=== PATIENT | female | born 1945 | race Caucasian/White ===

== ENCOUNTER 2021-02-25 14:56 | Inpatient (IN) | payer MEDICARE, OTHER ==
[~2021-02-25] VITALS: Ht 165.1 cm; Wt 55.8 kg
[2021-02-25 16:00] VITALS: BP 155/87
--- NOTE | 2021-02-25 16:30 | NUR ---
RN NOTES PATIENT TRANSFERRED TO UNIT AT ROOM 304-2 VIA [facility], ACCOMPANIED BY 2 EMT'S.
--- NOTE | 2021-02-25 17:00 | NUR ---
CLOTH BLEACHING SUPERVISOR NOTES ADMITTED THIS 75 Y/O FEMALE PATIENT FROM [facility] ER TRANSPORTED BY AMBULANCE VIA GURNEY, WITH ADMITTING DIAGNOSIS OF PNEUMONIA. PATIENT IS ALERT TO SELF, NON-VERBAL, BUT ABLE TO FOLLOW SIMPLE COMMANDS. ON [place], AIR, SPO2 97%. BREATHING EVEN AND UNLABORED, NO SOB NOTED. TELE MONITOR IN PLACE, SINUS TACH @110S. WITH SL ON LEFT FOREARM, PATENT AND INTACT. BODY ASSESSMENT DONE, NOTED WITH MULTIPLE DISCOLORATIONS ON LEFT FACE, LEFT HAND, LEFT KNEE, RIGHT FOREARM, AND REDNESS ON LEFT ELBOW. ROUTINE ADMISSION CARE PROVIDED. CALL LIGHT PLACED WITHIN EASY REACH, BED ON ITS LOWEST POSITION, BED LOCKED, BED ALARM ON, SIDE RAILS UP FOR SAFETY. ALL NEEDS ATTENDED TO, KEPT CLEAN AND COMFORTABLE. WILL CONTINUE TO MONITOR.SEEN AND EXAMINED BY DR. JOCELYN NESS.
[2021-02-25] MEDS ORDERED: ZOLPIDEM TARTRATE 5 MG TABLET PO PRN (17:30)
[2021-02-25] MEDS ORDERED: ONDANSETRON HCL/PF 4 MG/2 ML VIAL IVP PRN (17:30)
[2021-02-25] MEDS ORDERED: MAGNESIUM HYDROXIDE 30 ML UDC PO PRN (17:30)
[2021-02-25] MEDS ORDERED: Z GUARD REMEDY 2 OZ OINT TP PRN (17:30)
[2021-02-25] MEDS ORDERED: MAG HYDROX/AL HYDROX/SIMETH 30 ML UDC PO PRN (17:30)
[2021-02-25] MEDS ORDERED: CEFTRIAXONE 1 G VIAL IV SCH (17:30)
[2021-02-25] MEDS ORDERED: ACETAMINOPHEN 325 MG TABLET PO PRN ×2 (17:30→19:00)
[2021-02-25] MEDS ORDERED: LOPE-195 PO (17:38)
[2021-02-25] MEDS ORDERED: TRIA80CR12 TP (17:38)
[2021-02-25] MEDS ORDERED: HYDR28.316 RC (17:38)
[2021-02-25] MEDS ORDERED: ZINC1CAP3 PO (17:38)
[2021-02-25] MEDS ORDERED: PSYL3.4P6 PO (17:38)
[2021-02-25] MEDS ORDERED: BISA10SU11 RC (17:38)
[2021-02-25] MEDS ORDERED: SIMV-49 PO (17:38)
[2021-02-25] MEDS ORDERED: ACET-868 PO (17:38)
[2021-02-25] MEDS ORDERED: DIPH25CA51 PO (17:38)
[2021-02-25] MEDS ORDERED: NA P133E RC (17:38)
[2021-02-25] MEDS ORDERED: POLY15DR40 EACHEYE (17:38)
[2021-02-25] MEDS ORDERED: IBUP-1953 PO (17:38)
[2021-02-25] MEDS ORDERED: POLY17PO4 PO (17:38)
[2021-02-25] MEDS ORDERED: FAMO20TA8 PO (17:38)
[2021-02-25] MEDS ORDERED: CALC500T52 PO (17:38)
[2021-02-25] MEDS ORDERED: KETO5DRO39 EACHEYE (17:38)
[2021-02-25] MEDS ORDERED: HYDR-500 PO (17:38)
[2021-02-25] MEDS ORDERED: ONDA4TAB5 PO (17:38)
[2021-02-25] MEDS ORDERED: ASCO-352 PO (17:38)
[2021-02-25] MEDS ORDERED: NEOM28.37 TP (17:38)
[2021-02-25] MEDS ORDERED: SIME80TA15 PO (17:38)
[2021-02-25] MEDS ORDERED: DOCU-141 PO (17:38)
[2021-02-25] MEDS ORDERED: ASPI-1420 PO (17:38)
[2021-02-25] MEDS ORDERED: FERR325T23 PO (17:38)
[2021-02-25] MEDS ORDERED: MAGN400O6 PO (17:38)
[2021-02-25] MEDS ORDERED: METO25TA20 PO (17:38)
[2021-02-25] MEDS ORDERED: MULT-447 PO (17:38)
[2021-02-25] MEDS ORDERED: CLON0.1T PO (17:38)
[2021-02-25] MEDS ORDERED: QUET25TA PO (17:38)
--- NOTE | 2021-02-25 17:57 | NUR ---
RN NOTES SPOKE W/ ENRRIQUE AMADO ([phone]), ADMIN OF ABILITY PATHWAYS [facility], AND INFORMED ABOUT PATIENT'S PREVIOUS HOSPITALIZATION. PER GONZALEZ OSUNA IS THE RN OF [facility] AND CAN BE REACHED AT [phone] FOR INFORMATION.
[2021-02-25] MEDS: CEFTRIAXONE 1 G in IV D5W 50 ML IV SCH (18:34)
[2021-02-25] MEDS: IV NS 0.9% 1,000 ML IV PRN (18:35)
[2021-02-25] MEDS ORDERED: NA PHOS,M-B/NA PHOS,DI-BA 1 EA ENEMA RC PRN (19:00)
[2021-02-25] MEDS ORDERED: BISACODYL SUPP (10 MG) 10 MG/SUPP.RECT SUPP.RECT RC PRN (19:00)
[2021-02-25] MEDS ORDERED: NEOMY SULF/BACITRAC ZN/POLY 15 GM TUBE TP PRN (19:00)
--- NOTE | 2021-02-25 19:40 | NUR ---
QUALITY AUDIT REPRESENTATIVE NOTES RECEIVED PATIENT IN BED WATCHING TELEVISION. NON-VERBAL BUT NODS HEAD A WAY OF COMMUNICATING. NO S/S OF APPARENT DISTRESS. NO C/O PAIN. TELE MONITOR READING ST 114. IV NS RUNNING AT 75 ML/HR. SAFETY IN PLACE. WILL CONTINUE TO MONITOR PATIENT.
[2021-02-25 20:00] VITALS: BP 144/72
[2021-02-25] MEDS: QUETIAPINE FUMARATE 25 MG TABLET PO SCH (22:00)
[2021-02-25] MEDS ORDERED: SIMVASTATIN 40 MG TABLET PO SCH (22:00)
[2021-02-25] MEDS: DOCUSATE SODIUM 100 MG CAPSULE PO SCH (22:00)
--- NOTE | 2021-02-26 04:00 | NUR ---
BIOMEDICAL EQUIPMENT SPECIALIST NOTES MRSA SWAB AND UA COLLECTED AT THIS TIME.
[2021-02-26 05:00] VITALS: BP 163/66
[2021-02-26 06:15] LABS: BASOPHILS % (AUTO) 0.4 % (0.0-2.0); EOSINOPHILS % (AUTO) 1.1 % (0.0-6.0); HEMATOCRIT 41 % (33-45); HEMOGLOBIN 13.9 g/dL (11.5-14.8); LYMPHOCYTES # (AUTO) 0.9 K/uL (0.8-4.8); LYMPHOCYTES % (AUTO) 9.8 % (20.0-44.0); MEAN CORPUSCULAR HGB CONC 34 g/dl (31.0-36.0); MEAN CORPUSCULAR VOLUME 88 fL (82-100); MONOCYTES # (AUTO) 1.1 K/uL (0.1-1.30); MONOCYTES % (AUTO) 11.8 % (2.0-12.0); NEUTROPHILS # (AUTO) 7.1 K/uL (1.8-8.9); NEUTROPHILS % (AUTO) 76.9 % (43.0-81.0); PLATELET COUNT (AUTO) 329 K/uL (150-450); WHITE BLOOD COUNT (AUTO) 9.3 K/uL (4.3-11.0)
[2021-02-26 06:20] LABS: BILIRUBIN,URINE NEGATIVE (NEGATIVE); COLOR,URINE YELLOW (YELLOW); LEUKOCYTE ESTERASE ,URINE TRACE (NEGATIVE); NITRITE, URINE NEGATIVE (NEGATIVE); PROTEIN,URINE NEGATIVE (NEGATIVE); UGLUCOSE NEGATIVE (NEGATIVE); UROBILINOGEN,URINE 0.2 EU/dL (0.2)
--- NOTE | 2021-02-26 06:42 | NUR ---
FOURDRINIER MACHINE OPERATOR NOTE PATIENT IN BED. A/OX1 TO NAME ONLY, NON-VERBAL. NODS A WAY OF COMMUNICATION. NO S/S OF APPARENT DISTRESS. NOT EXHIBITING PAIN VIA FLACC, ALSO DENIES PAIN. TELE MONITOR READING ST 113. IV NS RUNNING @75ML/HR. PATIENT KEPT NPO THE WHOLE SHIFT. SAFETY KEPT IN PLACE THE WHOLE SHIFT. WILL ENDORSE TO MORNING SHIFT RN.
[2021-02-26 06:44] LABS: BACTERIA,URINE Few /HPF (None Seen); SQUAMOUS EPITHELIAL CELL,UR Few /HPF (None Seen); WBC,URINE 81-100 /HPF (0-3)
[2021-02-26] MEDS: IV NS 0.9% 1,000 ML IV PRN ×2 (07:18→19:16)
--- NOTE | 2021-02-26 07:35 | NUR ---
EP TECH OPENING NOTES RECEIVED PATIENT IN AWAKE IN BED, ALERT AND ORIENTED X1, NON-VERBAL. NO S/S OF DISTRESS NOTED. NO SOB. BREATHING IS EVEN AND UNLABORED. IV ACCESS LFA#20 PATENT AND INTACT WITH NS RUNNING @75MLS/HR. SAFETY MEASURES IN PLACE WITH BED LOCKED IN LOW POSITION AND SIDE RAILS UP X 2. WILL CONTINUE TO MONITOR PATIENT THROUGHOUT SHIFT.
[2021-02-26 07:58] LABS: ALBUMIN 3.2 g/dL (3.4-5.0); BILIRUBIN,DIRECT 0.2 mg/dL (0.0-0.2); BILIRUBIN,TOTAL 0.5 mg/dL (0.2-1.0); CALCIUM, SERUM 8.5 mg/dL (8.5-10.1); CREATININE 0.9 mg/dL (0.6-1.3); MAGNESIUM 2.2 mg/dL (1.8-2.4); PHOSPHORUS 2.7 mg/dL (2.5-4.9); TOTAL PROTEIN, SERUM 7.3 g/dL (6.4-8.2)
[2021-02-26 08:00] VITALS: BP 164/89
[2021-02-26] MEDS: FAMOTIDINE (20 MG) 20 MG TABLET PO SCH (08:17)
[2021-02-26] MEDS: ASPIRIN EC 81 MG TABLET.DR PO SCH (08:55)
[2021-02-26] MEDS: MULTIVIT W/MINERALS 1 TAB TABLET PO SCH (08:55)
[2021-02-26] MEDS: ASCORBIC ACID 500 MG TABLET PO SCH (08:55)
[2021-02-26] MEDS: FERROUS SULFATE (325 MG) 325 MG/TAB TABLET PO SCH (08:55)
[2021-02-26] MEDS: CALCIUM CARBONATE (1250) 500 MG TABLET PO SCH ×2 (08:55→16:12)
[2021-02-26] MEDS: METOPROLOL TARTRATE 25 MG TABLET PO SCH ×2 (08:56→16:12)
[2021-02-26] MEDS: CLONIDINE HCL 0.1 MG TABLET PO PRN ×2 (11:59→20:49)
--- NOTE | 2021-02-26 11:59 | NUR ---
SHOWER ENCLOSURE INSTALLER NOTE BP 160/105 HR 80. CLONIDINE 0.1MG GIVEN PRN. WILL MONITOR BP.
[2021-02-26 12:00] VITALS: BP 160/105
[2021-02-26 16:00] VITALS: BP 156/80
[2021-02-26] MEDS: CEFTRIAXONE 1 G in IV D5W 50 ML IV SCH (17:30)
--- NOTE | 2021-02-26 18:31 | NUR ---
CARTON FILLER CLOSING NOTES PATIENT IN AWAKE IN BED, ALERT AND ORIENTED X1, NON-VERBAL, ABLE TO FOLLOW SOME COMMADS. NO S/S OF DISTRESS NOTED. NO SOB. BREATHING IS EVEN AND UNLABORED. NOTED IV ACCESS LFA#20 WAS REMOVED, POSSIBLY BY PATIENT. ALL NEEDS MET THROUGHOUT SHIFT. SAFETY AND FALL MEASURES MAINTAINED. WILL ENDORSE CONTINUITY OF CARE TO ONCOMING SHIFT.
--- NOTE | 2021-02-26 19:30 | NUR ---
RN OPENING NOTE PATIENT IN BD, AWAKE. PATIENT IS NONVERBAL BUT ABLE TO MAKE SOUNDS AND NODS. TELE MONITOR READS SR 83 BPM. BREATHING EVEN AND UNLABORED, TOLERATING ROOM AIR. PATIENT'S IV ACCESS PATENT AND INTACT IVF ONGOING. BRUISE ON L FACE AND REDDENNED SACRUM NOTE. SAFETY MEASURES IN PLACE: BED LOCKED AND IN LOWEST POSITION, CALL LIGHT WITHIN REACH, SIDE RAILS UP, ASPIRATION PRECAUTIONS ON. WILL MONITOR PATIENT CLOSELY.
[2021-02-26 20:00] VITALS: BP 167/75
--- NOTE | 2021-02-26 20:49 | NUR ---
RN NOTE PATIENT GIVEN CLONIDINE FOR BP OF 167/75. WILL RECHECK BP IN AN HOUR
[2021-02-26 22:00] VITALS: BP 148/76
[2021-02-26] MEDS: DOCUSATE SODIUM 100 MG CAPSULE PO SCH (22:05)
[2021-02-26] MEDS: QUETIAPINE FUMARATE 25 MG TABLET PO SCH (22:06)
[2021-02-26] MEDS: SIMVASTATIN 20 MG TABLET PO SCH (22:06)
[2021-02-27] VITALS: BP 136/78
[2021-02-27 04:00] VITALS: BP 144/84
--- NOTE | 2021-02-27 05:35 | NUR ---
RN NOTE PATIENT PULLED OUT IV THE SECOND TIME, EVEN WITH HIDING THE TUBES AND KERLIX. PATIENT ALSO GOT OUT OF THE BED ONE TIME AND HAVE BEEN TRYING TO GET OUT OF THE BED. OBTAINED ORDER FOR BILATERAL SOFT WRIST RESTRAINTS FROM VENKAT URBINA.
[2021-02-27 06:50] LABS: BASOPHILS % (AUTO) 0.5 % (0.0-2.0); HEMATOCRIT 41 % (33-45); LYMPHOCYTES # (AUTO) 1.6 K/uL (0.8-4.8); LYMPHOCYTES % (AUTO) 19.3 % (20.0-44.0); MEAN CORPUSCULAR HGB CONC 34 g/dl (31.0-36.0); MEAN CORPUSCULAR VOLUME 88 fL (82-100); MONOCYTES # (AUTO) 1.1 K/uL (0.1-1.30); NEUTROPHILS # (AUTO) 5.1 K/uL (1.8-8.9); NEUTROPHILS % (AUTO) 62.2 % (43.0-81.0); PLATELET COUNT (AUTO) 318 K/uL (150-450); RED BLOOD CELL COUNT(AUTO) 4.63 MIL/uL (4.0-5.2); WHITE BLOOD COUNT (AUTO) 8.2 K/uL (4.3-11.0)
--- NOTE | 2021-02-27 06:55 | NUR ---
RN NOTE PATIENT IN BED, EYES CLOSED. PATIENT REMAINS CONFUSED. BILATERAL SOFT WRIST RESTRAINTS ON. NEW IV LINE IN PLACE ON LAC 20G PATENT AND INTACT. SAFETY MEASURES IMPLEMENTED. TOLERATES ROOM AIR. PHOTO ROSA ELENA OF SACRAL REDNESS. TELE MONITOR READS SR 78 WITH PACS. ALL NEEDS MET AND ATTENDED ALL ORDERS CARRIED OUT. WILL ENDORSE TO DAY SHIFT NURSE FOR BECKY. Addendum: 02/27/21 at 0701 by LAITH CHAUDHARI RN CLOSING NOTE
[2021-02-27 07:18] LABS: CALCIUM, SERUM 8.5 mg/dL (8.5-10.1); CREATININE 0.6 mg/dL (0.6-1.3); POTASSIUM 3.4 mmol/L (3.5-5.1)
[2021-02-27] MEDS: FAMOTIDINE (20 MG) 20 MG TABLET PO SCH (07:30)
--- NOTE | 2021-02-27 07:37 | NUR ---
SPINDLE SANDER OPENING NOTES RECEIVED PATIENT IN BED, AWAKE, A/O X1, NON-VERBAL BUT MAKES SOUNDS. PATIENT ON ROOM AIR; BREATHING EVEN AND UNLABORED; NO SOB PRESENT. CURRENT TELE MONITOR WITH A READING OF SR 63. NO COMPLAINS OF PAIN. PATIENT IS ON BILATERAL WRIST RESTRAINS; REMOVING IV LINES AND WONDERS. LAC IV ACCESS PRESENT AND INTACT; SL. SAFETY PRECAUTIONS IN PLACE; BED IN LOW POSITION AND LOCKED, RAILS UP X2, CALL LIGHT WITHIN REACH. WILL CONTINUE TO MONITOR PATIENT.
[2021-02-27 08:00] VITALS: BP 154/77
[2021-02-27] MEDS: ASPIRIN EC 81 MG TABLET.DR PO SCH (08:37)
[2021-02-27] MEDS: METOPROLOL TARTRATE 25 MG TABLET PO SCH ×2 (08:37→16:07)
[2021-02-27] MEDS: FERROUS SULFATE (325 MG) 325 MG/TAB TABLET PO SCH (08:37)
[2021-02-27] MEDS: CALCIUM CARBONATE (1250) 500 MG TABLET PO SCH ×2 (08:38→16:07)
[2021-02-27] MEDS: MULTIVIT W/MINERALS 1 TAB TABLET PO SCH (08:38)
[2021-02-27] MEDS: ASCORBIC ACID 500 MG TABLET PO SCH (08:38)
[2021-02-27] MEDS ORDERED: POTASSIUM CHLORIDE 20 MEQ TAB.PRT.SR PO SCH (09:30)
[2021-02-27 16:00] VITALS: BP 147/86
[2021-02-27] MEDS: CEFTRIAXONE 1 G in IV D5W 50 ML IV SCH (17:11)
--- NOTE | 2021-02-27 18:32 | NUR ---
SALES SERVICE MANAGER CLOSING NOTES PATIENT REMAINS IN BED, AWAKE, A/O X1, NON-VERBAL BUT MAKES SOUNDS. PATIENT ON ROOM AIR; BREATHING EVEN AND UNLABORED; NO SOB PRESENT DURING SHIFT. CURRENT TELE MONITOR WITH A READING OF SR 89BPM. NO COMPLAINS OF PAIN. PATIENT CONTINUES ON BILATERAL WRIST RESTRAINS; REMOVING IV LINES AND WONDERS. LAC IV ACCESS PRESENT AND INTACT RUNNING NS @ 75 MLS/HR. ALL NEEDS ATTENDED DURING THE DAY. SAFETY PRECAUTIONS IN PLACE; BED IN LOW POSITION AND LOCKED, RAILS UP X2, CALL LIGHT WITHIN REACH. WILL ENDORSE TO LAST TURNER NURSE FOR BECKY.
--- NOTE | 2021-02-27 19:25 | NUR ---
TELE/RN OPENING NOTE RECEIVED PATIENT RESTING IN BED. AWAKE, ALERT AND ORIENTED X 1. NO S/SX OF PAIN NOTED AT THIS TIME. CONTINUES ON ROOM AIR WITH NO S/SX OF RESPIRATORY DISTRESS NOTED. IV ACCESS TO LEFT AC #20G INTACT AND PATENT. CONTINUES ON IVF NS 0.9% @ 75ML/HR. CONTINUES ON BILATERAL SOFT WRIST RESTRAINTS WITH POSITIVE CIRCULATION AND NO SKIN ISSUES NOTED. CONTINUES ON TELE MONITOR WITH CURRENT READING SR HR 86. CALL LIGHT WITHIN REACH. ASPIRATION, FALL AND SAFETY PRECAUTIONS MAINTAINED. WILL CONTINUE TO MONITOR.
[2021-02-27 20:00] VITALS: BP 149/83
[2021-02-27] MEDS: DOCUSATE SODIUM 100 MG CAPSULE PO SCH (22:11)
[2021-02-27] MEDS: SIMVASTATIN 20 MG TABLET PO SCH (22:11)
[2021-02-27] MEDS: IV NS 0.9% 1,000 ML IV PRN (22:12)
[2021-02-27] MEDS: QUETIAPINE FUMARATE 25 MG TABLET PO SCH (22:12)
[2021-02-28] VITALS: BP 144/90
--- NOTE | 2021-02-28 01:12 | NUR ---
TELE/RN NOTE PATIENT CAME BACK POSITIVE FOR MRSA IN NARES. NOTIFIED FIRE LOSS PREVENTION ENGINEER MD MILES WITH NEW ORDER FOR BACTROBAN OINTMENT TO NOSTRILS Q12HRS. ORDER INPUTTED AND CARRIED OUT.
[2021-02-28 04:00] VITALS: BP 149/80
[2021-02-28 06:20] LABS: BASOPHILS % (AUTO) 0.4 % (0.0-2.0); EOSINOPHILS % (AUTO) 2.1 % (0.0-6.0); HEMATOCRIT 41 % (33-45); HEMOGLOBIN 13.8 g/dL (11.5-14.8); LYMPHOCYTES # (AUTO) 1.1 K/uL (0.8-4.8); LYMPHOCYTES % (AUTO) 11.2 % (20.0-44.0); MEAN CORPUSCULAR HGB CONC 34 g/dl (31.0-36.0); MEAN CORPUSCULAR VOLUME 87 fL (82-100); MONOCYTES % (AUTO) 10.1 % (2.0-12.0); NEUTROPHILS # (AUTO) 7.8 K/uL (1.8-8.9); NEUTROPHILS % (AUTO) 76.2 % (43.0-81.0); PLATELET COUNT (AUTO) 332 K/uL (150-450); RED BLOOD CELL COUNT(AUTO) 4.66 MIL/uL (4.0-5.2); WHITE BLOOD COUNT (AUTO) 10.2 K/uL (4.3-11.0)
--- NOTE | 2021-02-28 06:20 | NUR ---
TELE/RN CLOSING NOTE PATIENT CURRENTLY SLEEPING IN BED. ALERT AND ORIENTED X 1. NO S/SX OF PAIN NOTED AT THIS TIME. CONTINUES ON ROOM AIR WITH NO S/SX OF RESPIRATORY DISTRESS NOTED. IV ACCESS TO LEFT AC #20G INTACT AND PATENT. CONTINUES ON IVF NS 0.9% @ 75ML/HR. CONTINUES ON BILATERAL SOFT WRIST RESTRAINTS WITH POSITIVE CIRCULATION AND NO SKIN ISSUES NOTED. CONTINUES ON TELE MONITOR WITH CURRENT READING SR HR 82. CALL LIGHT WITHIN REACH. ASPIRATION, FALL AND SAFETY PRECAUTIONS MAINTAINED. WILL ENDORSE PLAN OF CARE TO ONCOMING SHIFT.
[2021-02-28 06:52] LABS: CALCIUM, SERUM 8.5 mg/dL (8.5-10.1); CREATININE 0.7 mg/dL (0.6-1.3); MAGNESIUM 2.4 mg/dL (1.8-2.4); PHOSPHORUS 3.2 mg/dL (2.5-4.9); POTASSIUM 3.9 mmol/L (3.5-5.1)
[2021-02-28] MEDS: IV NS 0.9% 1,000 ML IV PRN ×2 (06:53→18:21)
[2021-02-28] MEDS: FAMOTIDINE (20 MG) 20 MG TABLET PO SCH (07:30)
--- NOTE | 2021-02-28 07:30 | NUR ---
SPIDER ASSEMBLER OPENING NOTES RECEIVED PATIENT IN BED AWAKE AND ALERT X 1,NON-VERBAL AND SKIN DISCOLORATION ON THE LEFT SIDE OF HER FACE.V/S WNL,NOT IN ANY DISTRESS.ON TELE MONITORING,ON IV FLUIDS OF NS AT 75ML/HR,TOLERATING WELL AND REMAINS ON IV ATB.ON BILATERAL SOFT WRIST RESTRAINT WITH SKIN CHECK DONE.ON ASPIRATION PRECAUTIONS AND FED BY ST DURING BREAKFAST.INCONTINENT OF BOTH BOWEL AND BLADDER,KEPT DRY AND WILL CONTINUE TO MONITOR.
[2021-02-28 08:00] VITALS: BP 147/78
[2021-02-28] MEDS: FERROUS SULFATE (325 MG) 325 MG/TAB TABLET PO SCH (09:45)
[2021-02-28] MEDS: MUPIROCIN OINT 2% 22 GM TUBE NS SCH ×2 (09:45→21:19)
[2021-02-28] MEDS: ASPIRIN EC 81 MG TABLET.DR PO SCH (09:45)
[2021-02-28] MEDS: MULTIVIT W/MINERALS 1 TAB TABLET PO SCH (09:46)
[2021-02-28] MEDS: CALCIUM CARBONATE (1250) 500 MG TABLET PO SCH ×2 (09:46→17:17)
[2021-02-28] MEDS: ASCORBIC ACID 500 MG TABLET PO SCH (09:46)
[2021-02-28] MEDS: METOPROLOL TARTRATE 25 MG TABLET PO SCH ×2 (09:46→17:16)
[2021-02-28] MEDS ORDERED: MUPIROCIN OINT 2% 22 GM TUBE NS SCH (12:00)
[2021-02-28 16:00] VITALS: BP 138/96
[2021-02-28] MEDS: CEFTRIAXONE 1 G in IV D5W 50 ML IV SCH (17:45)
--- NOTE | 2021-02-28 18:45 | NUR ---
TELE/RN CLOSING NOTES PATIENT IS ALERT AND ORIENTED X1. PATIENT IS ON ROOM AIR. PATIENT IN NO APPARENT RESPIRATORY DISTRESS. NOTED. NO COMPLAINED OF PAIN NOTED AT THIS TIME. TELE MONITOR READING SINUS RHYTHM 83 BPM. IV ACCESS AT LEFT AC # 20 G WITH IV FLUID OF NS AT 75ML/HOUR ON AND INFUSING WELL. SEEN AND EXAMINED BY MD WITH ORDERS MADE AND CARRIED OUT. ALL DUE MEDICATIONS WAS GIVEN. SAFETY PRECAUTION WAS IN PLACED. BED IN LOWEST POSITION AND LOCKED. SIDERAILS UP X2. CALL LIGHT WITHIN REACH. WILL ENDORSED TO DIAGNOSTIC IMAGING MANAGER FOR BECKY.
--- NOTE | 2021-02-28 19:54 | NUR ---
WASHER CARCASS OPENING NOTES PATIENT IS ALERT AND ORIENTED X1. PATIENT IS STABLE ON ROOM AIR. PATIENT'S CONNECTED TO A TELE MONITOR WITH NO CARDIAC DISTRESS NOTED. IV ACCESS NOTED IN LEFT AC G#20, WHICH IS INTACT, PATENT, AND FLUSHING WELL. PATIENT'S IN NO ACUTE DISTRESS AT THIS TIME. SAFETY MEASURES IN PLACE: BED LOCKED, BED ALARM ON, SIDE RAILS UPX3, AND CALL LIGHT WITHIN REACH. WILL CONTINUE TO MONITOR THE PATIENT.
[2021-02-28 20:00] VITALS: BP 133/96
[2021-02-28] MEDS: SIMVASTATIN 20 MG TABLET PO SCH (21:19)
[2021-02-28] MEDS: QUETIAPINE FUMARATE 25 MG TABLET PO SCH (21:20)
[2021-02-28] MEDS: DOCUSATE SODIUM 100 MG CAPSULE PO SCH (21:20)
[2021-03-01] VITALS: BP 101/65
[2021-03-01 04:15] VITALS: BP 147/86
[2021-03-01 06:36] LABS: BASOPHILS # (AUTO) 0.1 K/uL (0.0-0.2); BASOPHILS % (AUTO) 0.6 % (0.0-2.0); EOSINOPHILS % (AUTO) 3.8 % (0.0-6.0); HEMATOCRIT 40 % (33-45); HEMOGLOBIN 13.4 g/dL (11.5-14.8); LYMPHOCYTES # (AUTO) 1.3 K/uL (0.8-4.8); MEAN CORPUSCULAR HGB CONC 34 g/dl (31.0-36.0); MEAN CORPUSCULAR VOLUME 88 fL (82-100); MONOCYTES # (AUTO) 0.9 K/uL (0.1-1.30); MONOCYTES % (AUTO) 10.6 % (2.0-12.0); NEUTROPHILS # (AUTO) 6.2 K/uL (1.8-8.9); PLATELET COUNT (AUTO) 339 K/uL (150-450); RED BLOOD CELL COUNT(AUTO) 4.51 MIL/uL (4.0-5.2); WHITE BLOOD COUNT (AUTO) 8.9 K/uL (4.3-11.0)
[2021-03-01 06:56] LABS: CALCIUM, SERUM 8.4 mg/dL (8.5-10.1); CREATININE 0.8 mg/dL (0.6-1.3); POTASSIUM 3.9 mmol/L (3.5-5.1)
--- NOTE | 2021-03-01 07:30 | NUR ---
TELE/RN NOTES RECEIVED PATIENT ON BED AWAKE ALERT AND ORIENTED X1. PATIENT IS ON ROOM AIR. PATIENT IN NO APPARENT RESPIRATORY DISTRESS NOTED. NO SIGN AND SYMPTOM OF PAIN NOTED. TELE MONITOR SINUS TACHY 104 BPM. READING WILL CONTINUE TO MONITOR.
[2021-03-01] MEDS ORDERED: MUPI22OI7 NS (07:33)
[2021-03-01] MEDS: FAMOTIDINE (20 MG) 20 MG TABLET PO SCH (07:49)
[2021-03-01 08:00] VITALS: BP 136/78
[2021-03-01] MEDS: ASPIRIN EC 81 MG TABLET.DR PO SCH (08:25)
[2021-03-01] MEDS: CALCIUM CARBONATE (1250) 500 MG TABLET PO SCH (08:25)
[2021-03-01 08:26] VITALS: BP 136/78
[2021-03-01] MEDS: METOPROLOL TARTRATE 25 MG TABLET PO SCH (08:26)
[2021-03-01] MEDS: FERROUS SULFATE (325 MG) 325 MG/TAB TABLET PO SCH (08:26)
[2021-03-01] MEDS: ASCORBIC ACID 500 MG TABLET PO SCH (08:26)
[2021-03-01] MEDS: MULTIVIT W/MINERALS 1 TAB TABLET PO SCH (08:26)
[2021-03-01] MEDS: MUPIROCIN OINT 2% 22 GM TUBE NS SCH (09:55)
--- NOTE | 2021-03-01 10:27 | NUR ---
RN NOTES PATIENT IS CALM NOT PULLING IV BILATERAL WRIST RESTRAINED WAS DISCONTINUE
--- NOTE | 2021-03-01 12:43 | NUR ---
RN NOTES PATIENT IS ALERT AND ORIENTED X1. PATIENT IS ON ROOM AIR. PATIENT IN NO APPARENT RESPIRATORY DISTRESS NOTED. NO SIGN AND SYMPTOM OF PAIN NOTED AT THIS TIME. SEEN AND EXAMINED BY MD WITH ORDERS MADE AND CARRIED OUT. ALL DUE MEDICATIONS WAS GIVEN. DISCHARGED INSTRUCTIONS WAS GIVEN TO THE BOARD AND CARE PROTOTYPE MODEL MAKERKimberly BRITT. PATIENT LEFT THE HOSPITAL IN MEDICALLY STABLE CONDITION. WREATH AND GARLAND MAKER HAND BY 2 EMT VIA AMBULANCE.
== END 2021-03-01 12:45 | DRG 178 ==
LOC: TELE 16:17 → MED 03-01 09:35
PROVIDERS: ADMIT Nurse Practitioner Acute Care; ATTEND Hospitalist
DX: J15.6 Pneumonia due to other Gram-negative bacteria (principal); N39.0 Urinary tract infection, site not specified; E44.0 Moderate protein-calorie malnutrition; J98.11 Atelectasis; E78.5 Hyperlipidemia, unspecified; F79 Unspecified intellectual disabilities; I10 Essential (primary) hypertension; Z20.822 Contact with and (suspected) exposure to COVID-19; Z91.81 History of falling; Z87.440 Personal history of urinary (tract) infections; S00.83XA Contusion of other part of head, initial encounter; W19.XXXA Unspecified fall, initial encounter; Y93.9 Activity, unspecified; Y92.89 Other specified places as the place of occurrence of the external cause; E88.09 Other disorders of plasma-protein metabolism, not elsewhere classified; Z22.322 Carrier or suspected carrier of Methicillin resistant Staphylococcus aureus; Z68.20 Body mass index [BMI] 20.0-20.9, adult
CPT/HCPCS: 36415; 71045-TC; 80048-TC; 80076-TC; 81001; 83735-TC; 84100-TC; 85025-TC; 87081-TC; 87086-TC; 92526; 92611-TC; 97112-TC; 97116-TC; 97530-TC; G0378; J0696; J7030; J7060